=== PATIENT | male | born 1960 | race Caucasian/White ===

== ENCOUNTER 2017-09-08 04:49 | Observation (INO) | payer OTHER ==
[~2017-09-08] VITALS: Ht 172.7 cm; Wt 131.8 kg
[2017-09-08 06:05] LABS: HEMATOCRIT 39.5 % (38.0-50.0); HEMOGLOBIN 13.2 G/DL (12.5-16.6); MCH 31.1 PG (29.0-34.0); MCHC 33.4 G/DL (30.0-36.0); MCV 92.9 FL (86-99); PLATELET COUNT 218 K/uL (156-360); RBC DIS.WIDTH-SD 40.4 % (39-53); RED BLOOD COUNT 4.25 M/uL (4.00-5.50); WHITE BLOOD COUNT 12.1 K/uL (4.1-10.2)
[2017-09-08 06:13] LABS: CHLORIDE 107 mEq/L (99-109); POTASSIUM 4.1 mEq/L (3.7-5.4); SODIUM 140 mEq/L (136-147)
[2017-09-08 06:15] LABS: GLUCOSE 168 mg/dL (70-99); TOTAL PROTEIN 6.8 g/dL (6.4-8.3)
[2017-09-08 06:17] LABS: TOTAL BILIRUBIN 0.2 mg/dL (0.0-1.0)
[2017-09-08 06:18] LABS: ALKALINE PHOSPHATASE 72 IU/L (3-129)
[2017-09-08 06:19] LABS: CREATININE 0.8 mg/dL (0.6-1.3); GFR ESTIMATE (CALCULATED) > 59 mL/min/ (58.99-99999)
[2017-09-08 06:20] LABS: AST (GOT) 21 IU/L (2-34); UREA NITROGEN (BUN) 29 mg/dL (9-23)
[2017-09-08 06:21] LABS: ALT (GPT) 23 IU/L (3-49)
[2017-09-08 06:22] LABS: LIPASE 13 U/L (1.0-51.0)
[2017-09-08 06:23] LABS: TROP-I INTERPRETATION NEGATIVE; TROPONIN-I < 0.01 ng/mL (0.0-0.30)
[2017-09-08] MEDS ORDERED: LIDOCAINE HCL35 GM TP (09:00)
[2017-09-08] MEDS ORDERED: PROAIR HFA8.5 GM IH (09:01)
[2017-09-08] MEDS ORDERED: KLONOPIN0.5 M1 PO (09:01)
[2017-09-08] MEDS ORDERED: COZAAR100 MG PO (09:02)
[2017-09-08] MEDS ORDERED: LIPITOR80 MG PO (09:02)
[2017-09-08] MEDS ORDERED: LOW DOSE ASPIRI81 M1 PO (09:03)
[2017-09-08] MEDS ORDERED: EFFEXOR75 MG PO (09:03)
[2017-09-08 12:35] LABS: TROP-I INTERPRETATION NEGATIVE; TROPONIN-I < 0.01 ng/mL (0.0-0.30)
[2017-09-08 13:58] VITALS: BP 164/94
[2017-09-08 15:17] VITALS: BP 171/91
[2017-09-08 18:29] LABS: TROP-I INTERPRETATION NEGATIVE; TROPONIN-I < 0.01 ng/mL (0.0-0.30)
[2017-09-08 19:34] VITALS: BP 154/85
[2017-09-08 19:51] VITALS: BP 149/67
[2017-09-08 23:50] VITALS: BP 155/78
[2017-09-09 03:59] VITALS: BP 132/79
[2017-09-09 07:00] VITALS: BP 115/76
[2017-09-09] MEDS ORDERED: ANTIVERT25 MG PO (10:39)
== END 2017-09-09 12:05 | disposition home or self-care (01) ==
LOC: EME → EDBD 04:49 → EDOF 08:11 → ENRESERV 08:16 → EDOF 08:19 → ENRESERV 12:54 → 5WEST 13:46 → ENPENDDIS 09-09 10:57 → 5WEST 09-09 12:05
PROVIDERS: Emergency Medicine; Internal Medicine
DX: R42 Dizziness and giddiness (principal); R51 Headache; R11.2 Nausea with vomiting, unspecified; E78.5 Hyperlipidemia, unspecified; I10 Essential (primary) hypertension; F17.290 Nicotine dependence, other tobacco product, uncomplicated; R91.8 Other nonspecific abnormal finding of lung field
CPT/HCPCS: 70450; 70551; 71045; 80053; 83690; 84484; 85027; 93005; 94799; 99202; 99281; 99284; G0378; G8978 GP CJ; G8979 GP CH; J1650; J1885; J2405; J7030